=== PATIENT | female | born 1950 | race Caucasian/White ===

== ENCOUNTER 2024-05-19 11:44 | Outpatient (CLI) | payer MEDICARE, SELFPAY | END 2024-05-19 11:45 | disposition home or self-care (01) | PROVIDERS: Visit Provider Family Medicine | DX: E11.9 Type 2 diabetes mellitus without complications (principal); I10 Essential (primary) hypertension; D64.9 Anemia, unspecified; E78.5 Hyperlipidemia, unspecified; Z95.2 Presence of prosthetic heart valve | CPT/HCPCS: 80048; 80061 ==

== ENCOUNTER 2024-10-01 08:57 | Outpatient (CLI) | payer MEDICARE, SELFPAY | END 2024-10-01 08:58 | disposition home or self-care (01) | LOC: NFLDREF 10-03 23:12 | PROVIDERS: PCP Family Medicine; Referring Provider Family Medicine; Visit Provider Family Medicine | DX: E11.65 Type 2 diabetes mellitus with hyperglycemia (principal); Z79.84 Long term (current) use of oral hypoglycemic drugs | CPT/HCPCS: 82043; 82570 ==

== ENCOUNTER 2024-10-19 09:02 | Outpatient (CLI) | payer MEDICARE, SELFPAY | END 2024-10-19 09:03 | disposition home or self-care (01) | LOC: LKVREF 09:04 | PROVIDERS: PCP Family Medicine; Visit Provider Family Medicine | DX: L65.9 Nonscarring hair loss, unspecified (principal); D64.9 Anemia, unspecified; Z79.01 Long term (current) use of anticoagulants | CPT/HCPCS: 84443 ==

== ENCOUNTER 2024-12-11 09:55 | Outpatient (CLI) | payer MEDICARE, SELFPAY | END 2024-12-11 09:56 | disposition home or self-care (01) | LOC: NFLDREF 12-14 03:07 | PROVIDERS: PCP Family Medicine; Referring Provider Family Medicine; Visit Provider Family Medicine | DX: Z79.01 Long term (current) use of anticoagulants (principal); Z95.2 Presence of prosthetic heart valve | CPT/HCPCS: 85610 ==

== ENCOUNTER 2025-01-06 08:38 | Outpatient (CLI) | payer MEDICARE, SELFPAY | END 2025-01-06 08:39 | disposition home or self-care (01) | LOC: NFLDREF 01-11 03:12 | PROVIDERS: PCP Family Medicine; Referring Provider Family Medicine; Visit Provider Family Medicine | DX: Z79.01 Long term (current) use of anticoagulants (principal) | CPT/HCPCS: 85610 ==

== ENCOUNTER 2025-03-29 08:56 | Outpatient (CLI) | payer MEDICARE, SELFPAY | END 2025-03-29 08:57 | disposition home or self-care (01) | LOC: NFLDREF 03-30 15:42 | PROVIDERS: PCP Family Medicine; Referring Provider Family Medicine; Visit Provider Family Medicine | DX: Z79.01 Long term (current) use of anticoagulants (principal); Z95.2 Presence of prosthetic heart valve | CPT/HCPCS: 85610 ==

== ENCOUNTER 2025-03-31 14:45 | Outpatient (CLI) | payer MEDICARE, SELFPAY | END 2025-03-31 14:46 | disposition home or self-care (01) | LOC: NFLDREF 04-04 06:18 | PROVIDERS: PCP Family Medicine; Referring Provider Family Medicine; Visit Provider Family Medicine | DX: R30.0 Dysuria (principal); N39.0 Urinary tract infection, site not specified; E11.9 Type 2 diabetes mellitus without complications; Q64.9 Congenital malformation of urinary system, unspecified | CPT/HCPCS: 87086 ==